=== PATIENT | female | born 1975 | race Caucasian/White ===

== ENCOUNTER 2016-12-24 16:34 | Emergency (ER) | payer BC ==
[2016-12-24 16:56] VITALS: BP 120/81
--- NOTE | 2016-12-24 16:57 | UC ---
Complaint Female HPI - HPI Summary HPI Summary: External burning and itching for a few days. Monistat has helped. But she also has had frequency. - History Of Current Complaint Stated Complaint: URINARY COMPLAINT Time Seen by Provider: 12/24/16 16:44 Hx Obtained From: Patient Hx Last Menstrual Period: 07/20/15 Onset/Duration: Gradual Onset, Lasting Days Timing: Constant Severity Initially: Mild Severity Currently: Mild Character: Burning Aggravating Factor(s): Urination Alleviating Factor(s): Position Associated Signs And Symptoms: Positive: Genital Swelling. Negative: Fever, Back Pain, Vaginal Bleeding/Discharge, Vaginal Discharge, Nausea, Vomiting(# Of Episodes =), Retained Foregin Body (Specify) - Allergies/Home Medications Allergies/Adverse Reactions: Allergies Allergy/AdvReac Type Severity Reaction Status Date / Time No Known Allergies Allergy Verified 12/24/16 16:56 PMH/Surg Hx/FS Hx/Imm Hx Previously Healthy: No - bariatric surgery. prior uti. prior yeast infection. no prior std. - Surgical History Surgical History: Yes Surgery Procedure, Year, and Place: basstric bypass in july 27. [facility] - Family History Known Family History: Positive: Hypertension - Social History Lives: With Family - monogamous with . Alcohol Use: Rare Substance Use Type: None Smoking Status (MU): Never Smoked Tobacco - Immunization History Most Recent Influenza Vaccination: 2014 Review of Systems Genitourinary: Dysuria, Frequency, Urgency, Vaginal/Penile Burning, Vaginal/ Penile Itching All Other Systems Reviewed And Are Negative: Yes Physical Exam Triage Information Reviewed: Yes Appearance: Well-Appearing, No Pain Distress, Well-Nourished Vital Signs Reviewed: Yes Eyes: Positive: Conjunctiva Clear ENT: Positive: Normal ENT inspection Neck exam: Normal Neck: Positive: Supple, Nontender, No Lymphadenopathy Respiratory: Positive: Chest non-tender, Lungs clear, Normal breath sounds, No respiratory distress, No accessory muscle use Cardiovascular Exam: Normal Cardiovascular: Positive: No Murmur, Pulses Normal, Brisk Capillary Refill Abdominal Exam: Normal Abdomen Description: Positive: Nontender, No Organomegaly. Negative: CVA Tenderness (R), CVA Tenderness (L) Musculoskeletal Exam: Normal Musculoskeletal: Positive: Strength Intact, ROM Intact, No Edema Neurological: Positive: Alert, Muscle Tone Normal, Fatigued Psychological: Positive: Normal Response To Family Skin Exam: Normal Skin: Negative: rashes Complaint Female Dx - Course Course Of Treatment: we discussed need for pelvic exam but she has no risk factors or signs of STD. she also has a reliable production boring machine operator who she can follow with. she agrees to return for any worsening of symtpoms or any new genital symptoms. UA fairly clean. we will send for urine culture. we will start macrobid and diflucan. - Differential Dx/Diagnosis Differential Diagnosis/HQI/PQRI: Endometriosis, Ovarian Cyst, Ovarian Torsion, Pelvic Inflammatory Disease, Retained Foreign Body, Sexually Transmitted Disease , Urinary Tract Infection Provider Diagnoses: uti. yeast infection. Discharge - Discharge Plan Condition: Good Disposition: HOME Prescriptions: Fluconazole 100 MG TAB* [Diflucan 100 MG TAB*] 100 mg PO DAILY #3 tab Nitrofurantoin Monohyd Macro [Macrobid] 100 mg PO BID #20 cap Patient Education Materials: Urinary Tract Infection in Women (ED), Skin Yeast Infection (ED), Vulvovaginal Candidiasis (ED) Referrals: Mayelin Ba MD [Primary Care Provider] - If Needed
--- NOTE | 2016-12-26 07:40 | ED ---
Progress - Progress Note Progress Note: UCX (-). STOP ABX. Course/Dx - Course Course Of Treatment: we discussed need for pelvic exam but she has no risk factors or signs of STD. she also has a reliable hospice fellow who she can follow with. she agrees to return for any worsening of symtpoms or any new genital symptoms. UA fairly clean. we will send for urine culture. we will start macrobid and diflucan. - Diagnoses Provider Diagnoses: UTI (urinary tract infection)
== END 2016-12-24 17:30 | disposition home or self-care (01) ==
LOC: UCCORT 16:34
DX: B37.3 Candidiasis of vulva and vagina (principal); N39.0 Urinary tract infection, site not specified; Z32.02 Encounter for pregnancy test, result negative
CPT/HCPCS: 81003; 84702; 87086; 99212; G0463